=== PATIENT | female | born 1940 | race Two or more races ===

== ENCOUNTER 2017-05-06 06:00 | Day surgery (SDC) | payer OTHER | END 2017-05-06 11:26 | disposition home or self-care (01) | LOC: AMB-ENDOS 06:00 | DX: K52.0 Gastroenteritis and colitis due to radiation (principal); K64.1 Second degree hemorrhoids ==

== ENCOUNTER 2020-02-29 07:10 | Day surgery (SDC) | payer OTHER | END 2020-02-29 14:40 | disposition home or self-care (01) | LOC: AMB-ENDOS 07:10 | PROVIDERS: ATTEND Colon & Rectal Surgery | DX: K62.89 Other specified diseases of anus and rectum (principal); K52.0 Gastroenteritis and colitis due to radiation; K62.4 Stenosis of anus and rectum; Z20.828 Contact with and (suspected) exposure to other viral communicable diseases ==